=== PATIENT | female | born 1955 | race Caucasian/White ===

== ENCOUNTER → 2016-12-03 | Outpatient (CLI) | payer OTHER ==
[~2016-12-03] MED LIST: BUSP15TA PO; CALC-178 PO; CETI10TA22 PO; CLON1TAB PO; CYCL10TA2 PO; FLUO40CA9 PO; FLUT1DIS5 IH; MONT10TA9 PO; PANT40TA3 PO; PRAM0.255 PO; TIOT18CA IH; TRIA1TAB2 PO; VALS80TA3 PO
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
== END | disposition home or self-care (01) ==
LOC: PNCL 09:43
PROVIDERS: ATTEND Anesthesiology
DX: M54.2 Cervicalgia (principal); M25.512 Pain in left shoulder; M25.511 Pain in right shoulder
CPT/HCPCS: 99213

== ENCOUNTER → 2016-12-26 | Outpatient (CLI) | payer OTHER ==
[~2016-12-26] MED LIST changes: +IOHEXOL 180 MG/ML 10 ML VIAL. ONE; +methylPREDNISolone ACETATE 40 MG/ML VIAL. ONE; +methylPREDNISolone ACETATE 80 MG/ML VIAL. ONE
--- NOTE | 2016-12-27 03:10 | PAIN ---
DATE OF SERVICE: 12/26/2016 PROGRESS NOTE FOR PAIN CLINIC DIAGNOSES: Cervical radiculopathy with cervical degenerative disk disease. HISTORY OF PRESENT ILLNESS: The patient is a 61-year-old female who returns for followup status post initial evaluation and preauthorization for cervical epidural steroid injection. The patient return today, wishing to proceed, reports still significant pain in base of the neck and shoulders bilaterally, essentially equal, but more in the middle of her shoulder and lower neck. The patient reports as 7 on a scale of 10, it worse as 2 on a scale of 10. Currently, the patient reports worse with activity standing, using her upper extremities over the head, activity and so forth as well, scarring ____. The patient reports it as aching, sharp, burning and stabbing on and off ____ Medrol Dosepak seems to last visit then helped about 10% herself. The patient reports no new motor or sensory deficits or other complaints. PHYSICAL EXAMINATION: VITAL SIGNS: The patient's blood pressure is 136/84, pulse 90, respirations 18, temperature 97.9 degrees Fahrenheit. GENERAL: The patient is awake, alert, oriented, appropriate, very pleasant demeanor. HEENT: Head shows normocephalic, atraumatic. Extraocular movements are intact and symmetrical. Oral cavity, mucous membranes are moist and pink. Dentition is intact. NECK: Shows anterior throat supple without palpable lymphadenopathy noted. Swallow reflex is symmetrical. CHEST: Shows normal on inspection. Breath sounds are clear to auscultation bilaterally. HEART: Shows S1 and S2 clear. No murmurs auscultated. ABDOMEN: Obese, soft, nontender, nondistended. No palpable organomegaly is noted. BACK: Shows spine grossly midline. Cervical lordotic curvature is normal on appearance with palpation shows moderate tenderness with palpation in the midline inferior aspect of the cervical paraspinous musculature bilaterally without radiation trigger points or asymmetry in muscle girth is normal on firm with palpation, but again very tender diffusely the patient's upper extremity show deep tendon reflexes 2+ in the in the biceps and triceps tendons. Motor exam is strong with forming machine tender strength rated at 5/5 as is biceps and triceps flexion equal. Options were discussed with the patient. We will proceed with a cervical epidural steroid injection today with fluoroscopic guidance. Risks were again discussed including, but not limited to bleeding, infection, possibility of epidural hematoma, subsequent neurologic compromise, dural puncture, headaches, spinal cord and/or nerve damage, side effects of steroid medication and poor results regarding pain control. The patient understands and wishes to proceed. The patient will return to clinic in approximately 2 weeks for followup, counseled on return appointment, activity level and side effects to be aware of. DIAGNOSES: Cervical radiculopathy with cervical degenerative disk disease. PROCEDURE: Cervical epidural steroid injection in translaminar approach at the C6-C7 level with C-arm fluoroscopic guidance under sterile prep and drape using local anesthetic. MEDICATIONS INJECTED: Depo-Medrol 120 mg plus 5 mL of preservative free normal saline. CONDITION AT DISCHARGE: Stable. The patient tolerated the procedure well, had no complications. CHRISTIANNE ADAM MD DR: ISABELL/ben JOB#: [id number] / [id number]
== END | disposition home or self-care (01) ==
LOC: PNCL 10:17
PROVIDERS: ATTEND Anesthesiology
DX: M50.123 Cervical disc disorder at C6-C7 level with radiculopathy (principal)
CPT/HCPCS: 62321; J1030; J1040; 62323